=== PATIENT | male | born 1960 | race Caucasian/White ===

== ENCOUNTER 2024-07-30 14:08 | Emergency (ER) | payer OTHER, MEDICARE ==
[~2024-07-30] VITALS: Ht 175.3 cm; Wt 83.9 kg
[2024-07-30] MEDS ORDERED: Ibuprofen 600 MG Tab PO ONE (14:35)
[2024-07-30] MEDS ORDERED: Diphth,Pertuss(Acell),Tet Vac 0.5 ML VIAL IM ONE (15:15)
[2024-07-30] MEDS ORDERED: Lidocaine/Tetracaine/Epinephr 3 ML GEL SYRINGE TOP ONE (15:15)
== END 2024-07-30 16:10 | disposition home or self-care (01) ==
LOC: ER 14:08
DX: S01.01XA Laceration without foreign body of scalp, initial encounter (principal); R55 Syncope and collapse; I10 Essential (primary) hypertension; E11.9 Type 2 diabetes mellitus without complications; Z86.73 Personal history of transient ischemic attack (TIA), and cerebral infarction without residual deficits; Z59.89 Other problems related to housing and economic circumstances; W18.30XA Fall on same level, unspecified, initial encounter
CPT/HCPCS: 12001; 70450; 90471; 90715; 99283-25; A9270

== ENCOUNTER 2024-08-05 12:59 | Emergency (ER) | payer OTHER, MEDICARE ==
[~2024-08-05] VITALS: Ht 167.6 cm; Wt 79.4 kg
[2024-08-05 14:04] LABS: BASOPHILS ABSOLUTE AUTO 0.05 K/mm3 (0.00-0.23); BASOPHILS PERCENT AUTO 1 % (0-2); EOSINOPHILS ABSOLUTE AUTO 0.22 K/mm3 (0.00-0.68); EOSINOPHILS PERCENT AUTO 2 % (0-6); Hematocrit 43.1 % (37.0-53.0); Hemoglobin 14.9 g/dL (13.5-17.5); IMMATURE GRAN ABSOLUTE AUTO 0.04 K/mm3 (0.00-0.10); IMMATURE GRAN PERCENT AUTO 0 % (0-1); LYMPHOCYTES ABSOLUTE AUTO 1.46 K/mm3 (0.84-5.20); LYMPHOCYTES PERCENT AUTO 13 % (21-46); MONOCYTES ABSOLUTE AUTO 1.12 K/mm3 (0.16-1.47); MONOCYTES PERCENT AUTO 10 % (4-13); Mean Corpuscular HGB 29.5 pg (26.0-34.0); Mean Corpuscular HGB Conc 34.6 g/dL (31.5-36.5); Mean Corpuscular Volume 85 fL (80-100); NEUTROPHILS ABSOLUTE AUTO 7.98 K/mm3 (1.96-9.15); NEUTROPHILS PERCENT AUTO 73 % (41-73); Platelet Count 224 K/mm3 (150-400); RDW Coefficient Variation 16.2 % (11.7-14.2); RDW Standard Deviation 50.4 fL (35.1-46.3); Red Blood Cell Count 5.05 M/mm3 (4.30-5.90); White Blood Cell Count 10.87 K/mm3 (4.00-11.30)
[2024-08-05 14:27] LABS: Albumin, Blood 3.4 g/dL (3.4-5.0); Albumin/Globulin Ratio 0.8 (0.8-1.8); Bilirubin, Total 0.8 mg/dL (0.1-1.0); Calcium, Blood 9.1 mg/dL (8.5-10.1); Creatinine, Blood 0.87 mg/dL (0.60-1.20); Potassium, Blood 3.4 mmol/L (3.5-5.5); Total Protein, Blood 7.4 g/dL (6.4-8.2)
== END 2024-08-05 17:30 | disposition home or self-care (01) ==
LOC: ER 12:59
PROVIDERS: Student in an Organized Health Care Education/Training Program
DX: H43.12 Vitreous hemorrhage, left eye (principal); I11.0 Hypertensive heart disease with heart failure; E11.9 Type 2 diabetes mellitus without complications; I50.9 Heart failure, unspecified
CPT/HCPCS: 70450; 80053; 85025; 99284-25

== ENCOUNTER 2025-03-10 06:16 | Day surgery (SDC) | payer MEDICARE, OTHER ==
[2025-03-10] VITALS (9 sets, daily range): BP systolic 135–181; BP diastolic 85–102
[~2025-03-10] VITALS: Ht 175.3 cm; Wt 83.0 kg
[~2025-03-10 06:16] MED LIST: ACET500; ATOR80 PO; Aspir 8181 MG PO; INSULANI; Isosorbide Mono30 MG PO; JARDIANCE10 MG PO; LOSA50 PO; SPIR25 PO; Spironolactone25 MG PO; TRAM50 PO
[2025-03-10] MEDS ORDERED: NS 1,000 ML IV ONE ×2 (06:44→07:45)
[2025-03-10] MEDS ORDERED: CeFAZolin Sodium 1000 mg Vial ONE (06:44)
[2025-03-10] MEDS ORDERED: Heparin Sodium 1000 Units/ML 10ML MDV ONE (06:44)
[2025-03-10] MEDS ORDERED: METF500 PO (07:07)
[2025-03-10] MEDS ORDERED: CeFAZolin Sodium 2,000 MG VIAL ONE (07:44)
[2025-03-10] MEDS ORDERED: NS 50 ML IV ONE (07:45)
[2025-03-10] MEDS ORDERED: FentaNYL Citrate 50 MCG/ML 2 ML Injection ONE ×2 (07:52→08:37)
[2025-03-10] MEDS ORDERED: Midazolam HCl 1MG / ML 2ML Vial ONE ×2 (07:52→08:22)
[2025-03-10] MEDS ORDERED: HydrALAZINE HCl 20 MG / ML 1ML Vial ONE (08:28)
--- NOTE | 2025-03-10 12:31 | NUR ---
PATIENT TO RECOVERY ROOM S/P PACEMAKER AT 0935. PATIENT AWAKE AND ALERT, C/O MILD TENDERNESS TO INCISION AREA. DRSG INTACT, VERY SMALL AMOUNT OF PINK BLOOD ON DRSG. AREA WITH MINIMAL SWELLING. ICE PACK PLACED TO AREA. PATIENT GEOFFREY BREAKFAST/FLUIDS. PT VOIDED OVER 500CC TO URINAL. LOSARTAN GIEVN TO PATIENT PER DR ASHRAF FOR HTN. PATIENT DOWN TO XRAY FRO 2V CHEST XRAY VIA WHEELCHAIR, GEOFFREY WELL. PLACEMENT GOOD PER DR ASHRAF. VERBAL AND WRITTEN DISCHARGE INSTRUCTIONS GIVEN TO PATIENT AND PATIENT'S BROTHER ROSALINA WITH CLEAR UNDERSTANDING. PATIENT UNDERSTANDS THAT HE IS TO HOLD GLUCOPHAGE UNTIL 03/14. PATIENT HAS PACER CHECK APPOINTMENT AT HOSPITAL, WOUND CHECK APPOINTMENT MADE. OFFICE TO CALL BACK WITH 3 MONTH FOLLOW UP APPOINTMENT. PATIENT DC'D HOME IN STABLE CONDITION AT 1150. PATIENT WAS ESCORTED OUT VIA WHEELCHAIR AND CARE HANDED OVER TO ROSALINA.
== END 2025-03-10 12:44 | disposition home or self-care (01) ==
LOC: MHTC 06:16
DX: I49.5 Sick sinus syndrome (principal); I45.89 Other specified conduction disorders; I11.0 Hypertensive heart disease with heart failure; I50.22 Chronic systolic (congestive) heart failure; E11.319 Type 2 diabetes mellitus with unspecified diabetic retinopathy without macular edema; E11.40 Type 2 diabetes mellitus with diabetic neuropathy, unspecified; E78.2 Mixed hyperlipidemia; Z79.82 Long term (current) use of aspirin; Z79.84 Long term (current) use of oral hypoglycemic drugs; Z79.899 Other long term (current) drug therapy
CPT/HCPCS: 33208; 71046; 82947; 99152; 99153; A9270; C1785; C1894; C1898; J0360; J0690; J1644; J2250; J3010; J7030; J7040; Q9967

== ENCOUNTER 2025-05-05 15:23 | Inpatient (IN) | payer OTHER, MEDICARE ==
[~2025-05-05] VITALS: Ht 167.6 cm; Wt 80.5 kg
[~2025-05-05 15:23] MED LIST changes: -ACET500; +Acetaminophen650 M1 PO; -INSULANI; +INSULANI SC; +METF500 PO
[2025-05-05 16:02] VITALS: BP 183/94
[2025-05-05] MEDS ORDERED: FLU VACC TS2025(65UP)/MF59C/PF 45 MCG/0.5 ML SYRINGE IM SCH (16:50)
[2025-05-05] MEDS ORDERED: CefTRIAXone Sodium 1,000 MG in NS 100 ML IV SCH (17:00)
[2025-05-05 17:29] LABS: BASOPHILS ABSOLUTE AUTO 0.08 K/mm3 (0.00-0.23); BASOPHILS PERCENT AUTO 1 % (0-2); EOSINOPHILS ABSOLUTE AUTO 0.15 K/mm3 (0.00-0.68); EOSINOPHILS PERCENT AUTO 1 % (0-6); Hematocrit 46.4 % (37.0-53.0); Hemoglobin 15.7 g/dL (13.5-17.5); IMMATURE GRAN ABSOLUTE AUTO 0.10 K/mm3 (0.00-0.10); IMMATURE GRAN PERCENT AUTO 1 % (0-1); LYMPHOCYTES ABSOLUTE AUTO 1.32 K/mm3 (0.84-5.20); LYMPHOCYTES PERCENT AUTO 12 % (21-46); MONOCYTES ABSOLUTE AUTO 0.81 K/mm3 (0.16-1.47); MONOCYTES PERCENT AUTO 7 % (4-13); Mean Corpuscular HGB Conc 33.8 g/dL (31.5-36.5); Mean Corpuscular Volume 90 fL (80-100); NEUTROPHILS ABSOLUTE AUTO 8.78 K/mm3 (1.96-9.15); NEUTROPHILS PERCENT AUTO 78 % (41-73); NRBC ABSOLUTE 0.00 K/mm3 (0.00-0.02); NRBC Auto 0.0 /100 WBC (0.0-0.2); Platelet Count 249 K/mm3 (150-400); RDW Coefficient Variation 13.7 % (11.7-14.2); RDW Standard Deviation 45.3 fL (35.1-46.3)
[2025-05-05 17:49] LABS: Prothrombin Time Results 12.2 Sec (9.7-11.5)
[2025-05-05 17:54] LABS: Alanine Aminotransfer (ALT/SGP 34.0 U/L (12-78); Albumin, Blood 3.9 g/dL (3.4-5.0); Albumin/Globulin Ratio 1.0 (0.8-1.8); Anion Gap 9.0 mmol/L (3-11); Aspartate Aminotrans (AST/SGOT 24.0 U/L (12-37); Bilirubin, Total 0.6 mg/dL (0.1-1.0); Blood Urea Nitrogen 20.0 mg/dL (8-24); CO2, Blood 27.0 mmol/L (21-32); Calcium, Blood 10.9 mg/dL (8.5-10.1); Chloride, Blood 100.0 mmol/L (98-108); Creatinine, Blood 1.06 mg/dL (0.60-1.20); Globulin, Blood 3.8 g/dL (2.2-4.0); Glucose, Blood 158.0 mg/dL (70-99); Potassium, Blood 4.3 mmol/L (3.5-5.5); Sodium, Blood 132.0 mmol/L (136-145); Total Protein, Blood 7.7 g/dL (6.4-8.2)
[2025-05-05] MEDS ORDERED: Insulin Human Lispro 100 Units/ML 3ML Syringe SC SCH ×2 (19:00→21:00)
[2025-05-05 19:43] VITALS: BP 153/82
[2025-05-05] MEDS ORDERED: Insulin Glargine 100 Unit/ML 3 ML SYR SC SCH (21:00)
[2025-05-05] MEDS ORDERED: Lactobacil 2-S.Thermo-Bifido 1 1 Cap PO SCH (21:00)
[2025-05-05 23:03] VITALS: BP 150/87
[2025-05-06] VITALS (8 sets, daily range): BP systolic 116–181; BP diastolic 72–98
--- NOTE | 2025-05-06 03:35 | NUR ---
SHIFT SUMMARY: PATIENT IS A&OX4. VITALS ARE STABLE AND HE IS ON ROOM AIR WITH >90% SPO2. PATIENT REPORTS 5/10 PAIN WHICH HAS BEEN MANAGED WITH HIS SCHEDULED PO TRAMADOL PER EMAR. LEFT CHEST WALL WITH PACEMAKER INCISION HAS REDNESS/SWELLING AND HAS A SCAB THAT IS DRY/INTACT. PATIENT HAS BEEN NPO SINCE MIDNIGHT FOR PROCEDURE WITH DR. ASHRAF LATER TODAY. LR IV FLUIDS CURRENTLY RUNNING AT 75ML/HR PER EMAR. PATIENT IS VOIDING VIA URINAL AT BEDSIDE AND PASSING GAS. PATIENT IS CURRENTLY LAYING IN BED WITH CALL LIGHT IN REACH. HE IS ABLE TO MAKE HIS NEEDS KNOWN AND CALLS APPROPRIATELY.
[2025-05-06 04:27] LABS: BASOPHILS ABSOLUTE AUTO 0.08 K/mm3 (0.00-0.23); BASOPHILS PERCENT AUTO 1 % (0-2); EOSINOPHILS ABSOLUTE AUTO 0.32 K/mm3 (0.00-0.68); EOSINOPHILS PERCENT AUTO 3 % (0-6); Hematocrit 42.3 % (37.0-53.0); Hemoglobin 14.7 g/dL (13.5-17.5); IMMATURE GRAN ABSOLUTE AUTO 0.11 K/mm3 (0.00-0.10); IMMATURE GRAN PERCENT AUTO 1 % (0-1); LYMPHOCYTES ABSOLUTE AUTO 2.02 K/mm3 (0.84-5.20); LYMPHOCYTES PERCENT AUTO 17 % (21-46); MONOCYTES ABSOLUTE AUTO 1.14 K/mm3 (0.16-1.47); MONOCYTES PERCENT AUTO 10 % (4-13); Mean Corpuscular HGB Conc 34.8 g/dL (31.5-36.5); Mean Corpuscular Volume 89 fL (80-100); NEUTROPHILS ABSOLUTE AUTO 8.13 K/mm3 (1.96-9.15); NEUTROPHILS PERCENT AUTO 69 % (41-73); NRBC ABSOLUTE 0.00 K/mm3 (0.00-0.02); NRBC Auto 0.0 /100 WBC (0.0-0.2); Platelet Count 228 K/mm3 (150-400); RDW Coefficient Variation 13.6 % (11.7-14.2); RDW Standard Deviation 43.9 fL (35.1-46.3)
--- NOTE | 2025-05-06 05:18 | NUR ---
PATIENTS LEFT CHEST WALL INCISION FROM PACEMAKER STARTED DRAINING SMALL AMOUNT OF SEROSANGUINEOUS OUTPUT AFTER TAKING A SHOWER THIS MORNING. INCISION WAS DRIED AND THEN PLACED A NON-ADHERENT GAUZE THEN WITH EXTRA GAUZE ON TOP WITH TAPE TO KEEP PRESSURE. DRESSING IS C/D/I AT THIS TIME. PATIENT IS LAYING IN BED WITH CALL LIGHT IN REACH.
[2025-05-06 06:15] LABS: Alanine Aminotransfer (ALT/SGP 30.0 U/L (12-78); Albumin, Blood 3.5 g/dL (3.4-5.0); Albumin/Globulin Ratio 0.9 (0.8-1.8); Anion Gap 7.0 mmol/L (3-11); Aspartate Aminotrans (AST/SGOT 20.0 U/L (12-37); Bilirubin, Total 0.4 mg/dL (0.1-1.0); Blood Urea Nitrogen 16.0 mg/dL (8-24); CO2, Blood 29.0 mmol/L (21-32); Calcium, Blood 10.2 mg/dL (8.5-10.1); Chloride, Blood 102.0 mmol/L (98-108); Creatinine, Blood 1.0 mg/dL (0.60-1.20); Globulin, Blood 3.7 g/dL (2.2-4.0); Glucose, Blood 135.0 mg/dL (70-99); Potassium, Blood 3.9 mmol/L (3.5-5.5); Sodium, Blood 134.0 mmol/L (136-145); Total Protein, Blood 7.2 g/dL (6.4-8.2)
[2025-05-06] MEDS ORDERED: HydrALAZINE HCl 20 MG / ML 1ML Vial IV PRN (08:30)
[2025-05-06] MEDS ORDERED: NS 1,000 ML IV ONE ×2 (15:41→16:39)
[2025-05-06] MEDS ORDERED: CeFAZolin Sodium 1000 mg Vial ONE (15:41)
[2025-05-06] MEDS ORDERED: Midazolam HCl 1MG / ML 2ML Vial ONE (16:38)
[2025-05-06] MEDS ORDERED: FentaNYL Citrate 50 MCG/ML 2 ML Injection ONE (16:38)
[2025-05-06] MEDS ORDERED: Phenylephrine HCl 100 MCG/ML-NS 10MLSYR (1MG/10ML) ONE (16:39)
--- NOTE | 2025-05-06 18:24 | NUR ---
ASSUMED CARE OF PATIENT AT 0700 FROM [facility]. A&OX4, IRRITABLE AND LABILE REGARDING NPO STATUS FOR PROCEDURE. PT TRANSPORTED TO THE TANK CLEANER AND PACEMAKER WAS REMOVED SUCCESSFULLY. ZOLL AT THE BEDSIDE PER DIRECTOR OF CONSERVATION REQUEST. VSS, USES CALL LIGHT APPROPRIATELY.
[2025-05-07 03:06] VITALS: BP 175/82
[2025-05-07 04:17] LABS: BASOPHILS ABSOLUTE AUTO 0.05 K/mm3 (0.00-0.23); BASOPHILS PERCENT AUTO 1 % (0-2); EOSINOPHILS ABSOLUTE AUTO 0.29 K/mm3 (0.00-0.68); EOSINOPHILS PERCENT AUTO 3 % (0-6); Hematocrit 42.9 % (37.0-53.0); Hemoglobin 14.5 g/dL (13.5-17.5); IMMATURE GRAN ABSOLUTE AUTO 0.06 K/mm3 (0.00-0.10); IMMATURE GRAN PERCENT AUTO 1 % (0-1); LYMPHOCYTES ABSOLUTE AUTO 1.81 K/mm3 (0.84-5.20); LYMPHOCYTES PERCENT AUTO 19 % (21-46); MONOCYTES ABSOLUTE AUTO 1.04 K/mm3 (0.16-1.47); MONOCYTES PERCENT AUTO 11 % (4-13); Mean Corpuscular HGB Conc 33.8 g/dL (31.5-36.5); Mean Corpuscular Volume 91 fL (80-100); NEUTROPHILS ABSOLUTE AUTO 6.23 K/mm3 (1.96-9.15); NEUTROPHILS PERCENT AUTO 66 % (41-73); NRBC ABSOLUTE 0.00 K/mm3 (0.00-0.02); NRBC Auto 0.0 /100 WBC (0.0-0.2); Platelet Count 237 K/mm3 (150-400); RDW Coefficient Variation 13.7 % (11.7-14.2); RDW Standard Deviation 44.9 fL (35.1-46.3)
[2025-05-07 04:44] LABS: Anion Gap 9.0 mmol/L (3-11); Blood Urea Nitrogen 25.0 mg/dL (8-24); CO2, Blood 27.0 mmol/L (21-32); Calcium, Blood 9.0 mg/dL (8.5-10.1); Chloride, Blood 103.0 mmol/L (98-108); Creatinine, Blood 1.04 mg/dL (0.60-1.20); Glucose, Blood 157.0 mg/dL (70-99); Potassium, Blood 3.9 mmol/L (3.5-5.5); Sodium, Blood 135.0 mmol/L (136-145)
--- NOTE | 2025-05-07 06:12 | NUR ---
SHIFT SUMMARY PT A&O X4, ABLE TO MAKE NEEDS KNOWN, MOVING ALL EXTREMITIES WITH PURPOSE, REPOSITIONING SELF IN BED, CALLS APPROPRIATELY. CONTINUOUS SPO2, SPO2 GREATER THAN 92% ON RA, PT DENIES SOB T/O THIS SHIFT. CONTINUOUS TELE MONITORING, SINUS 60-80 S THE MAJORITY OF THE SHIFT/ WHILE RESTING PT DID TOUCH 36 BUT DID NOT SUSTAIN, BP STABLE WITH MAP GREATER THAN 65, CAP REFILL WNL, PULSES PRESENT T/O. BOWEL TONES PRESENT IN ALL 4Q, PT DENIES FEELINGS OF CONSTIPATION, PT BEEN NPO SINCE MTN 05/07/2025. URINAL IND, URINE YELLOW IN COLOR. REPORTING PAIN TO INCISION FROM PACE MAKER REMOVAL 05/06/2025, DRESSING C/D/I BED LOWEST POSITION, CALL LIGHT IN REACH, AWAITING TO GIVE REPORT TO ONCOMING RN.
--- NOTE | 2025-05-07 06:21 | NUR ---
NOTIFIED WAS IN PT ROOM TALKING WITH PT, THIS RN NOTICED A PAUSE ON THE SCREEN BUT NO CHANGE IN PT CONDITION, [employer] FOLLOWED UP WITH THIS RN AND INFORMED IT WAS A 3.6 SECOND PAUSE @ APPROX 0614, THIS RN INFORMED DR. NUNEZ @ APPROX 0622.
[2025-05-07 08:31] VITALS: BP 157/71
[2025-05-07 11:11] VITALS: BP 151/72
[2025-05-07] MEDS ORDERED: Mag Sulfate 1 GM/D5% 100ML 100 ML IV STA (11:22)
[2025-05-07] MEDS ORDERED: Aminophylline 250MG / 10ML 10 ML Vial ONE (13:13)
[2025-05-07 15:47] VITALS: BP 129/75
--- NOTE | 2025-05-07 18:20 | NUR ---
SHIFT SUMMARY PATIENT IS AOX4. SBP IS 129-157, MAP >65. HR 30-60 SINUS GLORIA WITH OCCASIONAL PAUSE. PROVIDER AWARE. MEDICATED PER EMAR. STABLE AND ASYMPTOMATIC T/O SHIFT. O2 SATS >95 ON ROOM AIR. PATIENT CAN AMBULATE INDEPENDANTLY AROUND ROOM AND TO BATHROOM. HAD PACER REMOVED 05/06/25. PIN GOGO DRAIN IN PLACE. DRESSING CHANGED SOME SEROSANGUINEOUS DRAINAGE NOTED ON DRESSING, HOWEVER DRY. STRESS TEST SECOND DAY PERFORMED TODAY. TOLERATED WELL. DENIES CHEST PAIN/PRESSURE/SOB AT THIS TIME. PIV IN R ARM PATENT. PATIENT RESTING COMFORTABLY IN BED IN LOWEST POSITION CALL LIGHT WITH IN REACH.
[2025-05-07 19:52] VITALS: BP 157/64
[2025-05-08] VITALS (8 sets, daily range): BP systolic 136–185; BP diastolic 61–93
[2025-05-08 04:19] LABS: BASOPHILS ABSOLUTE AUTO 0.07 K/mm3 (0.00-0.23); BASOPHILS PERCENT AUTO 1 % (0-2); EOSINOPHILS ABSOLUTE AUTO 0.30 K/mm3 (0.00-0.68); EOSINOPHILS PERCENT AUTO 4 % (0-6); Hematocrit 45.8 % (37.0-53.0); Hemoglobin 15.1 g/dL (13.5-17.5); IMMATURE GRAN ABSOLUTE AUTO 0.09 K/mm3 (0.00-0.10); IMMATURE GRAN PERCENT AUTO 1 % (0-1); LYMPHOCYTES ABSOLUTE AUTO 1.51 K/mm3 (0.84-5.20); LYMPHOCYTES PERCENT AUTO 18 % (21-46); MONOCYTES ABSOLUTE AUTO 0.83 K/mm3 (0.16-1.47); MONOCYTES PERCENT AUTO 10 % (4-13); Mean Corpuscular HGB Conc 33.0 g/dL (31.5-36.5); Mean Corpuscular Volume 91 fL (80-100); NEUTROPHILS ABSOLUTE AUTO 5.48 K/mm3 (1.96-9.15); NEUTROPHILS PERCENT AUTO 66 % (41-73); NRBC ABSOLUTE 0.00 K/mm3 (0.00-0.02); NRBC Auto 0.0 /100 WBC (0.0-0.2); Platelet Count 231 K/mm3 (150-400); RDW Coefficient Variation 13.6 % (11.7-14.2); RDW Standard Deviation 45.6 fL (35.1-46.3)
[2025-05-08 04:48] LABS: Anion Gap 8.0 mmol/L (3-11); Blood Urea Nitrogen 24.0 mg/dL (8-24); CO2, Blood 25.0 mmol/L (21-32); Calcium, Blood 8.8 mg/dL (8.5-10.1); Chloride, Blood 103.0 mmol/L (98-108); Creatinine, Blood 0.93 mg/dL (0.60-1.20); Glucose, Blood 174.0 mg/dL (70-99); Magnesium, Blood 1.8 mg/dL (1.6-2.4); Potassium, Blood 3.8 mmol/L (3.5-5.5); Sodium, Blood 132.0 mmol/L (136-145)
--- NOTE | 2025-05-08 06:22 | NUR ---
SHIFT SUMMARY A/OX4, PLEASANT AND COOPERATIVE WITH CARE. ACKNOWLEDGED MIN CHEST WALL PAIN AT INCISION SITE, DECLINED NEED FOR MEDICATION. SINUS GLORIA, HR FREQUENTLY TOUCHING 30'S. SEVERAL PAUSES OF 2-3 SECONDS T/O NIGHT. PT REMAINED ASYMPTOMATIC. BP ELEVATED 180'S-190'S, TREATED PER EMAR, BP DOWN TO 170'S. REMAINED ON RA, SATS ABOVE 95%. PT COMPLAINED OF ITCHING SKIN NEAR INCISION SITE, DRESSING REMOVED, SITE LEFT OPEN TO DRY FOR SEVERAL HOURS, REDRESSED AT PTS REQUEST NEAR SHIFT CHANGE.
[2025-05-08] MEDS ORDERED: Mag Sulfate 1 GM/D5% 100ML 100 ML IV STA (06:39)
--- NOTE | 2025-05-08 09:05 | NUR ---
am note this rn assumed care at 0700. blood pressure hypertensive and gave morning meds early. upon reassessment after medications patient blood pressure improved. patient is alert and oriented x4. perrla. patient is able to make needs known and uses call light appropriately. patient denies pain, chest pain/pressure or shortness of breath. patient lung sounds clear throughout. patient has gauze over left chest wall with drain and is clean dry and intact. patient is able to do own adls independently with staff standby for safety when ambulating. see shift assessment for further detials md hutchins rounding at 0855 and this rn at bedside. md hutchins discussed abnormal stress test, and possibly angio tomorrow when doing the pacemaker but plan to discuss with md germain. patient verbalized understanding
--- NOTE | 2025-05-08 10:13 | NUR ---
update this rn spoke with patient brother, minh, and updated on patient plan and how the patient is doing
--- NOTE | 2025-05-08 14:10 | NUR ---
update md germain in to see patient and discussed plan of care. plan is for leadless pacemaker to be placed tomorrow
--- NOTE | 2025-05-08 17:37 | NUR ---
shift summary patient neuro remains intact. perrla. vital signs stable. minh in this afternoon and updated on the plan for pace maker to be placed tomorrow and hopefully discharge after. minh agrees with this plan. no acute changes this shift. see previous notes
[2025-05-08] MEDS ORDERED: NS 250 ML IV PRN (20:25)
[2025-05-09] VITALS (12 sets, daily range): BP systolic 119–170; BP diastolic 57–98
[2025-05-09 04:48] LABS: BASOPHILS ABSOLUTE AUTO 0.07 K/mm3 (0.00-0.23); BASOPHILS PERCENT AUTO 1 % (0-2); EOSINOPHILS ABSOLUTE AUTO 0.28 K/mm3 (0.00-0.68); EOSINOPHILS PERCENT AUTO 3 % (0-6); Hematocrit 42.9 % (37.0-53.0); Hemoglobin 14.4 g/dL (13.5-17.5); IMMATURE GRAN ABSOLUTE AUTO 0.05 K/mm3 (0.00-0.10); IMMATURE GRAN PERCENT AUTO 1 % (0-1); LYMPHOCYTES ABSOLUTE AUTO 1.68 K/mm3 (0.84-5.20); LYMPHOCYTES PERCENT AUTO 19 % (21-46); MONOCYTES ABSOLUTE AUTO 0.98 K/mm3 (0.16-1.47); MONOCYTES PERCENT AUTO 11 % (4-13); Mean Corpuscular HGB Conc 33.6 g/dL (31.5-36.5); Mean Corpuscular Volume 90 fL (80-100); NEUTROPHILS ABSOLUTE AUTO 5.64 K/mm3 (1.96-9.15); NEUTROPHILS PERCENT AUTO 65 % (41-73); NRBC ABSOLUTE 0.00 K/mm3 (0.00-0.02); NRBC Auto 0.0 /100 WBC (0.0-0.2); Platelet Count 231 K/mm3 (150-400); RDW Coefficient Variation 13.7 % (11.7-14.2); RDW Standard Deviation 45.2 fL (35.1-46.3)
[2025-05-09 05:02] LABS: Anion Gap 9.0 mmol/L (3-11); Blood Urea Nitrogen 23.0 mg/dL (8-24); CO2, Blood 25.0 mmol/L (21-32); Calcium, Blood 9.2 mg/dL (8.5-10.1); Chloride, Blood 104.0 mmol/L (98-108); Creatinine, Blood 0.99 mg/dL (0.60-1.20); Glucose, Blood 169.0 mg/dL (70-99); Magnesium, Blood 2.0 mg/dL (1.6-2.4); Potassium, Blood 4.4 mmol/L (3.5-5.5); Sodium, Blood 134.0 mmol/L (136-145)
--- NOTE | 2025-05-09 06:16 | NUR ---
Shift Summary Pt bradycardic t/o most of the shift, typically in the mid 40's, a few times down to lower 30's, as low as 31. Per tele he also had a 3.05 second pause at 0218. All events where asymptomatic. Pt is AOx4, somewhat forgetful. He has been NPO since 0000 in anticipation of pace maker placement today. HS blood sugar was elevated at 328, medicated per emar with long acting and short acting low SS.
--- NOTE | 2025-05-09 08:02 | NUR ---
am note this rn assumed care at 0700. vital signs stable. tele sinusbrady 40s. patient is alert and oriented x4. perrla. patient is able to make needs known and uses call light appropriately. patient denies pain, chest pain/presure or shortness of breath. patient lung sounds clear. patient left chest well cleaned and open to air with two stitches in place and drain in place. see shift assessment for further detials. md ca in to see the patient and discussing plan for pacemaker placed today. patient verbalized agreement. plan of care is up to date
[2025-05-09] MEDS ORDERED: NS 500 ML IV ONE ×3 (09:47→11:09)
[2025-05-09] MEDS ORDERED: Heparin Sodium 1000 Units/ML 10ML MDV ONE ×2 (09:47→09:52)
[2025-05-09] MEDS ORDERED: NS 1,000 ML IV ONE (09:52)
--- NOTE | 2025-05-09 10:09 | NUR ---
update patient left for pacemaker
--- NOTE | 2025-05-09 10:12 | NUR ---
update this rn called, minh, patient brother to update that patient went for pacemaker
[2025-05-09] MEDS ORDERED: FentaNYL Citrate 50 MCG/ML 2 ML Injection ONE (10:14)
[2025-05-09] MEDS ORDERED: Midazolam HCl 1MG / ML 2ML Vial ONE (10:15)
--- NOTE | 2025-05-09 12:08 | NUR ---
UPDATE patient back from hatchery laborer and got pace maker placed. patient has a right groin site that is soft nontender and no bleeding. patient vital signs stable. patient can sit up at 1245 and then stand at 1400.
--- NOTE | 2025-05-09 13:10 | NUR ---
Assessment of right groin site with Faye Richardson for handoff. Pt is lying flat, has no complaints has V/s stable, blood pressure slightly elevated at 152/93, spo2 97% on room air. Telelmetry shows SR at 61 bpm, BBB. RR even and regular, no dyspnea. Small amount of blood noted on right groin tegederm dressing. Faye states no change from prior assessment, no active bleeding noted.
--- NOTE | 2025-05-09 14:21 | NUR ---
update at 1245 this rn went to assess right groin sight and sight was oozing down the patients groin. this rn holding pressure and called dilip jimenez rn, whom notified md shah who was on the unit at this time. this rn held pressure for 10 minutes and then cleaned the patient up. there was no ozzing after cleaning around and educated the patient on laying flat and to not move that leg. this rn went to lunch and informed break rn of ooz. at 1330 when this rn returned patient had blood down groin and between thighs. this rn called meteorologist in charge and held pressure for 8 minutes. after 8 minutes dressing removed and site cleaned. additional pressure held for 5 minutes. after 5 minutes vera dressing in place and this rn held pressure for 5 minutes. after 5 minutes this rn placed guaze and pad then tegaderm in place to hold pressure and 2x2 guaze in right groin fold to identify bleeding. after doing this md germain in room to assess bleeding and informed on interventions that had been done. md shah decided to place fem stop in place for two hours. fem stop to removed and reassess bleeding at 1600. md arguello stated he would call minh, the brother, and updated. patient vital signs stable. patient educated on improtance of not moving that leg.
--- NOTE | 2025-05-09 16:11 | NUR ---
update fem stop removed and no ozzing since on. patient head up 15 degree and no ozzing at this time
--- NOTE | 2025-05-09 17:01 | NUR ---
shift summary see previous notes. right groin site has no ozzing at this time and is soft nontender and has a vera dressing in place. patient head is out 35 degree at this time and the plan is to continue to elevate head of bed every 15 mins. patient agrees to this plan. patient complained of shoulder pain and medicated per emar. see emar assessment for details. no acute changes since previous note. plan remains up to date
[2025-05-10 00:05] VITALS: BP 152/73
[2025-05-10 04:03] VITALS: BP 137/72
[2025-05-10 05:52] LABS: BASOPHILS ABSOLUTE AUTO 0.06 K/mm3 (0.00-0.23); BASOPHILS PERCENT AUTO 1 % (0-2); EOSINOPHILS ABSOLUTE AUTO 0.28 K/mm3 (0.00-0.68); EOSINOPHILS PERCENT AUTO 3 % (0-6); Hematocrit 42.9 % (37.0-53.0); Hemoglobin 14.4 g/dL (13.5-17.5); IMMATURE GRAN ABSOLUTE AUTO 0.06 K/mm3 (0.00-0.10); IMMATURE GRAN PERCENT AUTO 1 % (0-1); LYMPHOCYTES ABSOLUTE AUTO 1.32 K/mm3 (0.84-5.20); LYMPHOCYTES PERCENT AUTO 12 % (21-46); MONOCYTES ABSOLUTE AUTO 1.01 K/mm3 (0.16-1.47); MONOCYTES PERCENT AUTO 9 % (4-13); Mean Corpuscular HGB Conc 33.6 g/dL (31.5-36.5); Mean Corpuscular Volume 90 fL (80-100); NEUTROPHILS ABSOLUTE AUTO 8.47 K/mm3 (1.96-9.15); NEUTROPHILS PERCENT AUTO 76 % (41-73); NRBC ABSOLUTE 0.00 K/mm3 (0.00-0.02); NRBC Auto 0.0 /100 WBC (0.0-0.2); Platelet Count 227 K/mm3 (150-400); RDW Coefficient Variation 13.6 % (11.7-14.2); RDW Standard Deviation 45.1 fL (35.1-46.3)
--- NOTE | 2025-05-10 05:57 | NUR ---
ASSUMED CARE OF PT AT 1900. PT AXOX4 AND ABLE TO USE CALL LIGHT APPROPRIATELY. PT HAD PACEMAKER PLACED TODAY. RIGHT GROIN SITE IS DRY AND INTACT WITH SOME OLD DRAINAGE NOTED. SITE IS SOFT AND NO HEMATOMA PRESENT. HR BETWEEN 50S-60S THROUGHTOUT THE SHIFT. ALL OTHER VSS. LEFT CHEST SITE WILTON AND DRAIN STILL PRESENT AND INTACT. BED IN LOWEST POSITION AND CALL LIGHT WITHIN REACH.
[2025-05-10 06:31] LABS: Anion Gap 9.0 mmol/L (3-11); Blood Urea Nitrogen 19.0 mg/dL (8-24); CO2, Blood 23.0 mmol/L (21-32); Calcium, Blood 8.8 mg/dL (8.5-10.1); Chloride, Blood 104.0 mmol/L (98-108); Creatinine, Blood 1.05 mg/dL (0.60-1.20); Glucose, Blood 185.0 mg/dL (70-99); Magnesium, Blood 1.8 mg/dL (1.6-2.4); Potassium, Blood 4.1 mmol/L (3.5-5.5); Sodium, Blood 132.0 mmol/L (136-145)
[2025-05-10] MEDS ORDERED: Mag Sulfate 1 GM/D5% 100ML 100 ML IV ONE (07:30)
[2025-05-10 08:02] VITALS: BP 174/107
[2025-05-10] MEDS ORDERED: LINE600 PO (10:26)
[2025-05-10] MEDS ORDERED: VISBIOME 112.51 EACH PO (10:28)
--- NOTE | 2025-05-10 15:00 | NUR ---
DISCHARGE SUMMARY: A&Ox3-4 WITH IMPAIRED/POOR INSIGHT AND REQUIRING REDIRECTION. FIXATED ON DISCHARGING FROM FIRST CONTACT AT BEGINNING OF SHIFT. CALLS APPROPRIATELY AND IS ABLE TO ADVOCATE NEEDS, BUT WILL NETWORK CABLE INSTALLER HALLWAY SHORTLY AFTER PRESSING CALL LIGHT OR COME LOOKING FOR STAFF. AMBULATES INDEPENDENTLY. CONTINENT OF BOWEL AND BLADDER c URINAL USE. MEDS WHOLE c FLUIDS. TELE NSR AND PACED. POD#1 LEADLESS PACEMAKER IMPLANTATION. CONTINENT OF BOWEL AND BLADDER. DENIES C/O PAIN OR DISCOMFORT. PATIENT PROVIDED WITH COPY OF DISCHARGE PLAN AND MEDICATION LIST. MED REC FAXED TO [facility]. INSTRUCTED TO FOLLOW-UP WITH PCP AND CARDIOLOGY WITHIN 7-10 DAYS. ALL QUESTIONS ANSWERED TO DISCHARGING NURSE'S ABILITY AND PATIENT VOICED UNDERSTANDING OF DISCHARGE PLAN. TELE AND IV REMOVED AND PRESSURE DRESSING PLACED. LEFT FLOOR WITH ALL BELONGINGS AND DISCHARGE PACKET, ESCORTED BY BROTHER ROSALINA AND HIS . TRANSPORTATION PROVIDED BY BROTHER VIA POV.
== END 2025-05-10 13:41 | disposition home or self-care (01) | DRG 261 ==
LOC: PCU 15:23
PROVIDERS: ADMIT Family Medicine
PROC: 0JPT0PZ Removal of Cardiac Rhythm Related Device from Trunk Subcutaneous Tissue and Fascia, Open Approach (ICD-10-PCS; principal; 2025-05-06)
PROC: 02PA3MZ Removal of Cardiac Lead from Heart, Percutaneous Approach (ICD-10-PCS; 2025-05-06)
DX: T82.7XXA Infection and inflammatory reaction due to other cardiac and vascular devices, implants and grafts, initial encounter (principal); I47.10 Supraventricular tachycardia, unspecified; I50.22 Chronic systolic (congestive) heart failure; I50.32 Chronic diastolic (congestive) heart failure; Y92.89 Other specified places as the place of occurrence of the external cause; Y83.2 Surgical operation with anastomosis, bypass or graft as the cause of abnormal reaction of the patient, or of later complication, without mention of misadventure at the time of the procedure; M25.519 Pain in unspecified shoulder; Z95.0 Presence of cardiac pacemaker; Z72.0 Tobacco use; Z79.899 Other long term (current) drug therapy; Z86.73 Personal history of transient ischemic attack (TIA), and cerebral infarction without residual deficits; I11.0 Hypertensive heart disease with heart failure; Z79.4 Long term (current) use of insulin; E11.319 Type 2 diabetes mellitus with unspecified diabetic retinopathy without macular edema; E11.40 Type 2 diabetes mellitus with diabetic neuropathy, unspecified; I45.10 Unspecified right bundle-branch block; R00.1 Bradycardia, unspecified; Z98.890 Other specified postprocedural states; E78.5 Hyperlipidemia, unspecified; I25.10 Atherosclerotic heart disease of native coronary artery without angina pectoris
CPT/HCPCS: 33233; 33235; 33274; 36415; 76937; 78452; 80048; 80053; 82947; 83735; 85025; 85610; 87070; 87075; 87205; 93005; 93010; 93017; 96374; 96376; 99152; 99153; A9270; C1760; C1769; C1786; C1894; G0378; J0280; J0360; J0461; J0690; J0696; J1644; J1815; J2250; J2371; J2785; J3010; J3475; J7030; J7040; J7050; J7120; Q9967